=== PATIENT | male | born 1990 | race Caucasian/White ===

== ENCOUNTER 2021-06-19 11:59 | Emergency (ER) | payer BC ==
[~2021-06-19] VITALS: Ht 185.4 cm; Wt 83.5 kg
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
--- NOTE | 2021-06-19 13:08 | NUR ---
X RAY AT BEDSIDE
--- NOTE | 2021-06-19 13:09 | NUR ---
BIOINFORMATICS ANALYST AT BEDSIDE FOR PT'S CXR
[2021-06-19] MEDS ORDERED: IBUP-1955 PO (14:25)
[2021-06-19] MEDS ORDERED: CYCL5TAB PO (14:25)
[2021-06-19] MEDS ORDERED: KETOROLAC TROMETHAMINE INJ 30 MG/ML VIAL IM ONE (14:30)
--- NOTE | 2021-06-19 14:36 | NUR ---
[facility] UNIT# [id number] AT BEDSIDE.
[2021-06-19] MEDS ORDERED: KETOROLAC TROMETHAMINE 15 MG/ML VIAL ONE (14:39)
--- NOTE | 2021-06-19 14:45 | NUR ---
Patient discharged to home in stable condition. Written and verbal after care instructions given. Patient verbalizes understanding of instruction.
[2021-06-19 14:46] VITALS: BP 138/96
== END 2021-06-19 14:50 | disposition home or self-care (01) ==
LOC: ER 12:02
DX: S00.83XA Contusion of other part of head, initial encounter (principal); R07.89 Other chest pain; Y04.2XXA Assault by strike against or bumped into by another person, initial encounter; Y93.89 Activity, other specified; Y92.89 Other specified places as the place of occurrence of the external cause; Y99.8 Other external cause status
CPT/HCPCS: 71045; 96372; 99283; J1885